=== PATIENT | female | born 1945 | race Caucasian/White ===

== ENCOUNTER 2016-08-10 12:04 | Outpatient (CLI) ==
[2014-05-25 14:47] VITALS: BMI 24.0
[2016-08-10 13:47] LABS: BASOPHILS % (AUTO) 0.8 % (0.0-3.0); EOSINOPHILS # (AUTO) 0.3 K/ul (0.0-0.7); EOSINOPHILS % (AUTO) 5.1 % (0.0-7.0); HEMATOCRIT 37.3 % (37.0-47.0); HEMOGLOBIN 12.3 g/dl (12.0-16.0); IMMATURE GRANULOCYTE % (AUTO) 0.2 % (0.0-5.0); LYMPHOCYTES # (AUTO) 1.8 K/uL (0.60-3.4); LYMPHOCYTES % (AUTO) 32.8 (10.0-50.0); MEAN CORPUSCULAR HEMOGLOBIN 32.8 pg (27.0-31.0); MEAN CORPUSCULAR VOLUME 99.5 fl (81.0-99.0); MONOCYTES # (AUTO) 0.5 K/uL (0.4-2.0); NEUTROPHILS # (AUTO) 2.8 K/ul (2.0-6.9); NEUTROPHILS % (AUTO) 52.1; PLATELET COUNT 237 10^3/uL (140-440); RED BLOOD COUNT 3.75 10^6/ul (4.20-5.40); WHITE BLOOD COUNT 5.33 K/ul (4.6-10.2)
[2016-08-10 15:14] LABS: ALBUMIN 3.6 g/dL (3.4-5.0); ALBUMIN/GLOBULIN RATIO 0.97; ANION GAP 13.9; BILIRUBIN,TOTAL 0.5 mg/dL (0.00-1.20); CALCIUM 9.4 mg/dL (8.2-10.2); CHOL/HDL RATIO 3.9 (4.5-5.5); POTASSIUM 3.9 mmol/L (3.5-5.10); TOTAL PROTEIN 7.3 g/dL (5.8-8.1)
== END 2016-08-10 12:05 | disposition home or self-care (01) ==
LOC: LAB 12:04
PROVIDERS: ATTEND Nurse Practitioner Family
DX: E53.8 Deficiency of other specified B group vitamins (principal); I10 Essential (primary) hypertension; E03.9 Hypothyroidism, unspecified; E78.5 Hyperlipidemia, unspecified; Z72.0 Tobacco use
CPT/HCPCS: 36415; 80053; 80061; 82607; 84443; 85025

== ENCOUNTER 2016-12-10 12:42 | Outpatient (CLI) ==
[2014-05-25 14:47] VITALS: BMI 24.0
[2016-12-10 13:23] LABS: BASOPHILS % (AUTO) 0.4 % (0.0-3.0); EOSINOPHILS # (AUTO) 0.2 K/ul (0.0-0.7); EOSINOPHILS % (AUTO) 4.2 % (0.0-7.0); HEMATOCRIT 35.1 % (37.0-47.0); HEMOGLOBIN 11.8 g/dl (12.0-16.0); IMMATURE GRANULOCYTE % (AUTO) 0.2 % (0.0-5.0); LYMPHOCYTES # (AUTO) 1.8 K/uL (0.60-3.4); LYMPHOCYTES % (AUTO) 38.6 (10.0-50.0); MEAN CORPUSCULAR HEMOGLOBIN 32.8 pg (27.0-31.0); MEAN CORPUSCULAR HGB CONC 33.6 (31.8-35.4); MEAN CORPUSCULAR VOLUME 97.5 fl (81.0-99.0); MONOCYTES # (AUTO) 0.4 K/uL (0.4-2.0); MONOCYTES % (AUTO) 8.6 (0-10); NEUTROPHILS # (AUTO) 2.3 K/ul (2.0-6.9); PLATELET COUNT 219 10^3/uL (140-440); WHITE BLOOD COUNT 4.74 K/ul (4.6-10.2)
[2016-12-10 14:19] LABS: ALBUMIN 3.6 g/dL (3.4-5.0); ALBUMIN/GLOBULIN RATIO 1.09; BILIRUBIN,TOTAL 0.7 mg/dL (0.00-1.20); BUN/CREATININE RATIO 18.26; CALCIUM 9.3 mg/dL (8.2-10.2); CHOL/HDL RATIO 3.4 (4.5-5.5); CREATININE 1.04 mg/dL (0.60-1.30); TOTAL PROTEIN 6.9 g/dL (5.8-8.1)
== END 2016-12-10 12:43 | disposition home or self-care (01) ==
LOC: LAB 12:42
PROVIDERS: ATTEND Nurse Practitioner Family
DX: D64.9 Anemia, unspecified (principal); E53.8 Deficiency of other specified B group vitamins; E78.5 Hyperlipidemia, unspecified
CPT/HCPCS: 36415; 80053; 80061; 84439; 84443; 85025

== ENCOUNTER 2017-06-08 12:58 | Outpatient (CLI) ==
[2014-05-25 14:47] VITALS: BMI 24.0
[2017-06-08 13:09] LABS: BASOPHILS % (AUTO) 0.6 % (0.0-3.0); EOSINOPHILS # (AUTO) 0.3 K/ul (0.0-0.7); EOSINOPHILS % (AUTO) 5.3 % (0.0-7.0); HEMATOCRIT 36.3 % (37.0-47.0); HEMOGLOBIN 12.4 g/dl (12.0-16.0); LYMPHOCYTES # (AUTO) 1.5 K/uL (0.60-3.4); LYMPHOCYTES % (AUTO) 31.4 (10.0-50.0); MEAN CORPUSCULAR HEMOGLOBIN 33.9 pg (27.0-31.0); MEAN CORPUSCULAR HGB CONC 34.2 (31.8-35.4); MEAN CORPUSCULAR VOLUME 99.2 fl (81.0-99.0); MONOCYTES # (AUTO) 0.5 K/uL (0.4-2.0); MONOCYTES % (AUTO) 10.5 (0-10); NEUTROPHILS # (AUTO) 2.5 K/ul (2.0-6.9); NEUTROPHILS % (AUTO) 52.2; PLATELET COUNT 227 10^3/uL (140-440); RED BLOOD COUNT 3.66 10^6/ul (4.20-5.40); WHITE BLOOD COUNT 4.87 K/ul (4.6-10.2)
[2017-06-08 14:12] LABS: ALANINE AMINOTRANSFERASE < 6 U/L (12-78); ALBUMIN 3.6 g/dL (3.4-5.0); ALBUMIN/GLOBULIN RATIO 0.95; ALKALINE PHOSPHATASE 99 U/L (53-141); ANION GAP 14.9; ASPARTATE AMINO TRANSFERASE 15 U/L (15-37); BILIRUBIN,TOTAL 0.52 mg/dL (0.00-1.20); BLOOD UREA NITROGEN 18 mg/dL (7-18); BUN/CREATININE RATIO 17.47; CALCIUM 9.2 mg/dL (8.2-10.2); CARBON DIOXIDE 25 mmol/L (23-31); CHLORIDE 103 mmol/L (98-107); CHOL/HDL RATIO 3.5 (4.5-5.5); CHOLESTEROL 168 mg/dL (0-200); CREATININE 1.03 mg/dL (0.60-1.30); GLUCOSE 98 mg/dL (82-115); HDL CHOLESTEROL 48 mg/dL (35-80); POTASSIUM 3.9 mmol/L (3.5-5.10); SODIUM 139 mmol/L (136-145); TOTAL PROTEIN 7.4 g/dL (5.8-8.1); TRIGLYCERIDES 68 mg/dL (30-150); VITAMIN D25 16 ng/mL (20-50); VLDL CHOLESTEROL 14 mg/dL (2-30)
== END 2017-06-08 12:59 | disposition home or self-care (01) ==
LOC: LAB 12:58
PROVIDERS: ATTEND Nurse Practitioner Family
DX: E03.9 Hypothyroidism, unspecified (principal); E78.5 Hyperlipidemia, unspecified; E53.8 Deficiency of other specified B group vitamins; I10 Essential (primary) hypertension; Z78.0 Asymptomatic menopausal state
CPT/HCPCS: 36415; 80053; 80061; 82306; 82607; 84443; 85025

== ENCOUNTER 2017-07-18 13:02 | Outpatient (CLI) ==
[2014-05-25 14:47] VITALS: BMI 24.0
== END 2017-07-18 13:03 | disposition home or self-care (01) ==
LOC: LAB 13:02
PROVIDERS: ATTEND Nurse Practitioner Family
DX: E03.9 Hypothyroidism, unspecified (principal); R94.6 Abnormal results of thyroid function studies
CPT/HCPCS: 36415; 84439; 84443

== ENCOUNTER 2017-09-06 09:02 | Outpatient (CLI) ==
[2014-05-25 14:47] VITALS: BMI 24.0
== END 2017-09-06 09:03 | disposition home or self-care (01) ==
LOC: RHC-LAB 09:02
PROVIDERS: ATTEND Nurse Practitioner Family
DX: E78.5 Hyperlipidemia, unspecified (principal); E03.9 Hypothyroidism, unspecified; I10 Essential (primary) hypertension; E55.9 Vitamin D deficiency, unspecified
CPT/HCPCS: 36415; 80053; 80061; 82306; 84443

== ENCOUNTER 2017-10-10 08:58 | Outpatient (CLI) ==
[2014-05-25 14:47] VITALS: BMI 24.0
== END 2017-10-10 08:59 | disposition home or self-care (01) ==
LOC: LAB 08:58
PROVIDERS: ATTEND Nurse Practitioner Family
DX: E55.9 Vitamin D deficiency, unspecified (principal); I10 Essential (primary) hypertension; E03.9 Hypothyroidism, unspecified; E78.5 Hyperlipidemia, unspecified; Z72.0 Tobacco use
CPT/HCPCS: 36415; 84443

== ENCOUNTER 2018-03-08 09:04 | Outpatient (CLI) ==
[2014-05-25 14:47] VITALS: BMI 24.0
== END 2018-03-08 09:05 | disposition home or self-care (01) ==
LOC: LAB 09:04
PROVIDERS: ATTEND Nurse Practitioner Family
DX: E55.9 Vitamin D deficiency, unspecified (principal); I10 Essential (primary) hypertension; E03.9 Hypothyroidism, unspecified; E78.5 Hyperlipidemia, unspecified; Z72.0 Tobacco use
CPT/HCPCS: 36415; 80053; 80061; 82306; 84443; 85025

== ENCOUNTER 2018-03-16 10:58 | Outpatient (CLI) ==
[2014-05-25 14:47] VITALS: BMI 24.0
== END 2018-03-16 10:59 | disposition home or self-care (01) ==
LOC: CAR 10:58
PROVIDERS: ATTEND Nurse Practitioner Family
DX: R00.1 Bradycardia, unspecified (principal)
CPT/HCPCS: 93005; 93010

== ENCOUNTER 2018-03-26 15:00 | Emergency (ER) ==
[2018-03-26 15:06] VITALS: BP 128/79; TEMP 98.2; BMI 23.6
--- NOTE | 2018-03-26 16:54 | ED.PDOC ---
General ED Provider: Dr. RANDY AMARAL Chief Complaint: Fall Stated Complaint: My jaw and Rt arm hurt. Tripped and fell over parking lot concrete divider and struck jaw against the concrete surface Time Seen by Physician: 15:40 Mode of Arrival: Wheelchair Information Source: Patient Exam Limitations: No limitations Primary Care Provider: RENETTA SIMMONS Nursing and Triage Documentation Reviewed and Agree: Yes Does patient meet sepsis criteria?: No System Inflammatory Response Syndrome: Not Applicable Sepsis Protocol: For patient's 13 years and over: Temp is 96.8 and below OR 101 and greater Pulse >90 BPM Resp >20/minute Acutely Altered Mental Status Are patient's symptoms suggestive of a new infection, such as: -Pneumonia -Skin, Soft Tissue -Endocarditis -UTI -Bone, Joint Infection -Implantable Device -Acute Abdominal Infection -Wound Infection -Meningitis -Blood Stream Catheter Infection -Unknown Trauma/Injury Complaint Exam - Facial Injury Complaint/Exam Location of Pain: Reports: Chin (superfical laceraton .5 cm) Mechanism of Injury: Reports: Trauma Onset/Duration: 1 hr Symptoms Are: Still present Onset of Pain: Reports: Immediate Initial Severity: Moderate Current Severity: Moderate Location: Reports: Diffuse Character: Reports: Sharp, Aching, Throbbing Alleviating: Reports: None Aggravating: Reports: Movement Associated Signs and Symptoms: Reports: Swelling Related History: Denies: Similar episode Related Surgical History: Reports: None Facial Findings: Present: Normal findings Differential Diagnoses: Fracture, Laceration Review of Systems - Review Of Systems Constitutional: Reports: No symptoms Eyes: Reports: No symptoms Ears, Nose, Mouth, Throat: Reports: Mouth pain, Mouth swelling Respiratory: Reports: No symptoms Cardiac: Reports: No symptoms GI: Reports: No symptoms : Reports: No symptoms Musculoskeletal: Reports: Joint swelling Skin: Reports: No symptoms Neurological: Reports: No symptoms Endocrine: Reports: No symptoms Hematologic/Lymphatic: Reports: No symptoms All Other Systems: Reviewed and Negative Past Medical History - Past Medical History Previously Healthy: Yes Endocrine: Reports: None, Unknown Cardiovascular: Reports: None, Unknown Respiratory: Reports: None Hematological: Reports: None Gastrointestinal: Reports: None Genitourinary: Reports: None Neuro/Psych: Reports: None Musculoskeletal: Reports: None Cancer: Reports: None Last Menstrual Period: menopause - Surgical History General Surgical History: Reports: None - Family History Family History: Reports: None - Social History Smoking Status: Current every day smoker, Light tobacco smoker Hx Substance Use: No Alcohol Screening: None Physical Exam - Physical Exam Appearance: Well-appearing Ill-appearing: Mild Pain Distress: Moderate Eyes: MICHAEL, EOMI, Conjunctiva clear ENT: Ears normal, Nose normal, Oropharynx normal Respiratory: Airway patent, Breath sounds clear, Breath sounds equal, Respirations nonlabored Cardiovascular: RRR, Pulses normal, No rub, No murmur GI/: Soft, Nontender, No masses, Bowel sounds normal, No Organomegaly Musculoskeletal: Normal strength, ROM intact, No edema, No calf tenderness Skin: Warm (superficial laceraton chin), Dry, Normal color Neurological: Sensation intact, Motor intact, Reflexes intact, Cranial nerves intact, Alert, Oriented Psychiatric: Affect appropriate, Mood appropriate Course - Course Orders, Labs, Meds: Orders Category Date Time Status Splint [ED SPLINT APPLICATION] .ONCE EMERGENCY 03/26/18 19:11 Active Diphth,Pertuss(Acell),Tet Vac [Boostrix] MEDS 03/26/18 19:53 Discontinued 0.5 ml IM .ONCE ONE CT FOREARM RIGHT WO CONTRAST Stat RADS 03/26/18 16:[address] MAXILLOFACIAL W/O CONTRAST Stat RADS 03/26/18 16:52 Completed Medications Discontinued Medications Generic Name Dose Route Start Last Admin Trade Name Freq PRN Reason Stop Dose Admin Diphtheria/Pertussis/Tetanus Vacc 0.5 ml 03/26/18 19:53 03/26/18 19:57 Boostrix IM 03/26/18 19:54 0.5 ml .ONCE ONE Administration Vital Signs: Temp Pulse Resp BP Pulse Ox 03/26/18 15:00 98.2 F 72 20 128/79 93 L Departure - Departure Time of Disposition: 18:00 Disposition: HOME SELF-CARE Discharge Problem: Closed fracture of condylar process of mandible, Right radial head fracture Instructions: Jaw Fracture in Adults (ED), Elbow Fracture (ED) Condition: Good Pt referred to PMD for follow-up: No IPMP verified?: No Additional Instructions: Follow up with Orthopedic clinic in next 24-48 hrs for further evaluation Rt elbow Injury May take Ibuprofen as needed for pain Ice pack to area of injury Full liquid diet See specialist in [facility] later this week [phone] Prescriptions: Tramadol HCl 50 mg PO Q6HR PRN #15 tablet PRN Reason: Pain Allergies/Adverse Reactions: Allergies ciprofloxacin [From Cipro] Allergy (Severe, Verified 03/26/18 15:07) hives ciprofloxacin HCl [From Cipro] Allergy (Severe, Unverified 03/04/17 11:21) hives Home Medications: Ambulatory Orders Timolol Maleate 0.25 mg OP DAILY 01/07/14 Tramadol HCl 50 mg PO Q6HR PRN #15 tablet 03/26/18 Disposition Discussed With: Patient, Family Musculoskeletal Complaint Exam - Upper Extremity Complaint/Exam Location of Pain: Reports: Right, Elbow, Forearm, Wrist Mechanism of Injury: Reports: Trauma Onset/Duration: 1 hr Symptoms Are: Still present Timing: Constant Episodes Lasting: Hours Initial Severity: Moderate Current Severity: Moderate Location: Reports: Discrete Character: Reports: Aching, Throbbing Aggravating: Reports: Movement, Extension, Internal rotation, External rotation Alleviating: Reports: Rest, Ice Related History: Denies: Similar episode DVT Risk Factors: Reports: None Septic Arthritis Risk Factors: Reports: None Related Surgical History: Reports: None Upper Extremity Findings: Present: Swelling, Ecchymosis NV Bundle Intact Distal to Injury: Yes Compartment Syndrome Risk Factors: Absent: Pain Differential Diagnoses: Sprain, Other (Fracture Radius)
--- NOTE | 2018-03-26 17:27 | CT ---
EXAM: CT of the maxillofacial region without contrast History: Facial trauma. Technique: Multiplanar CT images through the maxillofacial region were obtained without the administ ration of IV contrast Findings: Orbits are intact. Visualized intracranial contents demonstrate no grossly acute findings . There is swelling of the upper lip. Mild mucosal thickening of the ethmoid air cells, frontal sinuses and sphenoid sinuses. 1.9 cm x 1 c m lucent lesion within the left maxilla. Mastoid air cells are clear. Bilateral ostiomeatal units are not occluded. Moderately displaced and angulated comminuted fracture of the left mandibular condyla r neck. Degenerative changes of the cervical spine with severe degenerative disc disease at C5-6. Impression: 1. Acute fracture of the left mandibular condylar neck. 2. Lucent lesion within the left maxilla could represent periapical dental abscess or odontogenic cy st. 3. Mild sinus disease. 4. Swelling of the upper lip.
--- NOTE | 2018-03-26 17:29 | CT ---
EXAM: CT of the right forearm without contrast History: Right forearm trauma. Technique: Multiplanar CT images through the right forearm were obtained without the administration of IV contrast Findings: Osteopenia. There is a mildly displaced fracture of the radial neck. Joint effusion is se en at the elbow. A few small intra-articular loose bodies are seen within the elbow joint measuring up to 3 mm. Severe narrowing of the first carpal metacarpal joint with marginal sclerosis and osteophyte formatio n. Moderate narrowing of the radiocarpal joint and mild to moderate narrowing of the intercarpal alberta nts. Mild to moderate narrowing at the elbow joint with osteophytes. Impression: Mildly displaced fracture of the right radial neck.
[2018-03-26] MEDS ORDERED: BOOSTRIX IM ONE (19:53)
== END 2018-03-26 20:40 | disposition home or self-care (01) ==
LOC: ED 15:00
DX: M79.601 Pain in right arm (principal); R68.84 Jaw pain; S01.81XA Laceration without foreign body of other part of head, initial encounter; S02.611A Fracture of condylar process of right mandible, initial encounter for closed fracture; S52.121A Displaced fracture of head of right radius, initial encounter for closed fracture; W01.0XXA Fall on same level from slipping, tripping and stumbling without subsequent striking against object, initial encounter; Y92.481 Parking lot as the place of occurrence of the external cause
CPT/HCPCS: 90471; 90715; 96372; 99283

== ENCOUNTER 2018-04-11 09:53 | Outpatient (POV) | END 2018-04-11 17:00 | LOC: OUTPT 09:53 | PROVIDERS: ATTEND Otolaryngology | DX: H91.90 Unspecified hearing loss, unspecified ear (principal) | CPT/HCPCS: 92557; 92567 ==

== ENCOUNTER 2018-07-07 08:34 | Outpatient (CLI) | END 2018-07-07 08:35 | disposition home or self-care (01) | LOC: LAB 08:34 | PROVIDERS: ATTEND Nurse Practitioner Family | DX: D64.9 Anemia, unspecified (principal); I10 Essential (primary) hypertension; E03.9 Hypothyroidism, unspecified; E78.5 Hyperlipidemia, unspecified; E53.8 Deficiency of other specified B group vitamins | CPT/HCPCS: 36415; 80053; 80061; 82607; 84443; 85025 ==

== ENCOUNTER 2018-10-06 09:12 | Outpatient (CLI) | END 2018-10-06 09:13 | disposition home or self-care (01) | LOC: LAB 09:12 | PROVIDERS: ATTEND Nurse Practitioner Family | DX: D64.9 Anemia, unspecified (principal); I10 Essential (primary) hypertension; E03.9 Hypothyroidism, unspecified; E78.5 Hyperlipidemia, unspecified; E55.9 Vitamin D deficiency, unspecified; Z72.0 Tobacco use | CPT/HCPCS: 36415; 80053; 80061; 82306; 84443; 85025 ==

== ENCOUNTER 2019-02-12 10:23 | Outpatient (CLI) | END 2019-02-12 10:24 | disposition home or self-care (01) | LOC: RHC-LAB 10:23 | PROVIDERS: ATTEND Nurse Practitioner Family | DX: E03.9 Hypothyroidism, unspecified (principal) | CPT/HCPCS: 36415; 84443 ==